=== PATIENT | female | born 1975 | race Two or more races ===

== ENCOUNTER 2025-08-14 19:30 | Emergency (ER) | payer MEDICAID, SELFPAY ==
[2025-08-14 19:30] VITALS: BMI 25.4
--- NOTE | 2025-08-14 19:57 | XR_ITS ---
Examination: PA chest single view Technique: Upright PA chest single view Shortness of breath chest pain today. Findings: Pneumonia left base retrocardiac Normal heart size No pulmonary edema. Intact osseous structures Impression: Significant pneumonia left base
--- NOTE | 2025-08-14 20:43 | EKG_ITS ---
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
--- NOTE | 2025-08-14 20:43 | EDNOTE_ITS ---
ED Chest Pain RME/HPI General Chief Complaint: Chest Pain Stated Complaint: CHEST PAIN, H/A, SOB Time Seen by Provider: 08/14/25 19:34 Arrival date/time: 08/14/25 19:30 RME / HPI RME / HPI narrative: DR. FAITH MAIN ED EVALUATION: Patient with ongoing upper substernal chest pain described as tightness associated with SOB x approximately 7 days duration. Pain worsened with exertion and while in supine position, Noted palpitations, but denies near-syncope or lightheadedness. No recent URI, cough, fever, or chils. Noted pleuritic component. Cardiac Risk-Factors: Hypercholesterolemia, Negative HTN, DM, Tobacco use, FHx of heart disease. PE Risk-Factors: No recent prolonged immobilization, travel/surgery/tobacco use. No personal or FHx of PE or DVT. PMH: Hypercholesterolemia. PSH: Non-contributory. Allergies: None. Social: Negative. Related Data Previous Rx's ?Medication ?Instructions ?Recorded acetaminophen 300 mg-codeine 15 mg 1 tab PO BID PRN pa in #14 tabs 11/20/23 tablet acetaminophen 650 mg 650 mg PO Q12H PRN fever or pain 11/20/23 tablet,extended release #30 tabs docusate sodium 100 mg capsule 100 mg PO BID #30 caps 11/20/23 (Colace) doxycycline monohydrate 100 mg 100 mg PO BID #30 caps 11/20/23 capsule ibuprofen 600 mg tablet 600 mg PO TID #30 tabs 11/20 metronidazole 500 mg tablet 500 mg PO BID #30 tabs 03/10 albuterol sulfate 90 mcg/actuation 2 puff inhalation Q 6H PRN 08/15/25 aerosol inhaler shortness of breath or wheez ing #8.5 grams amoxicillin 500 mg-potassium 1 tab PO TID 10 days #30 tabs 08/15/25 clavulanate 125 mg tablet (Augmentin) dextromethorphan-guaifenesin 5 10 ml PO Q4H PRN cough #500 mL 08/15/25 mg-100 mg/5 mL oral liquid (Child Robitussin Cough-Chest DM) doxycycline hyclate 100 mg capsule 100 mg PO BID #20 c aps 08/15/25 Allergies Allergy/AdvReac Type Severity Reaction Status Date / Time No Known Allergies Allergy Verified 11/19/23 09:42 Review of Systems Review of Systems Systems Reviewed: All systems reviewed, normal except as documented Past Medical History Past Medical History CARDIAC: Positive Hypercholesterolemia REPRODUCTIVE: Positive Previous Pregnancies (x5) ED Exam Narrative Physical exam: GEN. APPEARANCE: The patient is alert awake oriented X-3 in no distress, lying down comfortably, does not look ill/toxic. Patient has good eye contact. Patient is cooperative. Appears mildy tachypneic with slight conversational dyspnea. VITALS: All vitals were reviewed and the pulse ox is 100% on room air which is normal according to my interpretation. HEENT: Normocephalic, atraumatic. Pupils are equal and reactive. Oral mucosa is moist. Patent Nares NECK: Supple, nontender, no thyromegaly, no meningismus, no JVD, no step offs CHEST: Symmetrical, atraumatic, and with equal expansion , Nontender on palpation no deformity and no crepitus. CARDIOVASCULAR: Heart regular rhythm no murmur or gallop rub or extra beats. LUNGS: Diminished breath sounds BL bilaterally with symmetrical chest rise. No laboring tachypnea or wheezing. No intercostal subcostal retraction. No rales and no rhonchi. ABDOMEN: Soft, flat, nontender to palpation, no guarding or rebound tenderness. There are no abnormal masses palpated. Active and normal bowel sounds. EXTREMITIES: Nontender. No edema. No cyanosis. Patient is able to move all 4 extremities well, with full ROM and good CSM. No calf tenderness or swelling. SKIN: Warm and dry, no jaundice or rashes noted. MUSCULOSKELETAL: No lubar or midline bony tenderness. There is no CVA tenderness. No paraspinal muscle spasm or tenderness. NEURO: Patient is BRIZUELA x 4, Cranial nerves II through XII grossly intact. There is no focal neurologic deficits noted. GCS is 15, PNS and FITNESS MANAGEMENT DIRECTOR appear grossly intact. PSYCHIATRIC: Patient is in normal mood and affect, cooperative, no SI or HI or hallucinations. Course Quality Measures none Orders Category Date Time Status Bedside COVID-19 Antigen Test NOW Care 08/14/25 23:[address] Screening NOW Care 08/14/25 21:08 Active EKG (ED ONLY) *Do not use* NOW Care 08/14/25 20:[address] angio chest Stat Exams 08/14/25 21:08 Taken EKG (ED Only) Stat Exams 08/14/25 20:43 Draft XR chest 1V Stat Exams 08/14/25 19:57 Completed B-Type Natriuretic Peptide Stat Lab 08/14/25 21:01 Completed CBC Stat Lab 08/14/25 21:01 Completed Cocci Serology IgM with reflex to IgG [Cocci Serology, Lab 08/15/25 03:49 Received Unk History] Stat Comprehensive Metabolic Panel Stat Lab 08/14/25 21:01 Completed D-Dimer Stat Lab 08/14/25 21:01 Completed Drug Screen,Urine Stat Lab 08/14/25 21:28 Completed Magnesium Stat Lab 08/14/25 21:01 Completed Procalcitonin Stat Lab 08/15/25 03:49 Completed Troponin I Stat Lab 08/14/25 21:01 Completed Albuterol/Ipratr Rt Dionne [Duoneb Rt Dionne] Med 08/14/25 23:49 Discontinued 3 ml INH X1 ONE Azithromycin Inj [Zithromax Inj] 500 mg Med 08/15/25 01:53 Discontinued Sodium Chloride 0.9% 250 ml [Ns] 250 ml IV X1 Sodium Chloride 0.9% 500 ml [Ns] 500 ml Med 08/14/25 21:10 Discontinued IV 500 mls/hr cefTRIAXone/D5w 1gm IV premix [Rocephin/D5w 1gm IV Med 08/15/25 01:52 Discontinued premix] 1 gm in 50 ml IV X1 Vital Signs Vital signs: Vital Signs Temperature 98.9 F 08/14/25 20:44 Pulse Rate 82 08/14/25 20:44 Respiratory Rate 20 08/14/25 20:44 Blood Pressure 122/86 H 08/14/25 20:44 Pulse Oximetry (%) 96 08/14/25 20:44 Oxygen Delivery Method Room Air 08/14/25 20:44 Chest Pain MDM Narrative MDM Narrative:: Scribe Attestation: Kristy Fxo, james scribing for and in the presence of Dr. Faith. Provider Notation: Although this document has been carefully reviewed, there may still be some phonetic and other typographical errors. These errors are purely grammatical due to imperfections in the software program and should not be construed in any way to compromise the substance of the patient's medical care during this visit. Please see PE findings. Laboratory markers demonstrate a normal WBC, no anemia or thrombocytopenia. Serum chemistries essentially unremarkable. Troponin I undetected. UA equivocal for infection, but appears to be contaminated. CXR demonstrates left reto-cardiac basillar PNA. Patient placed on patient monitor, received nebulizer therapy and dual IV ABX. A CT was obtained to r/o pulmonary infarct/PE. which was unremarkabke for evidence of PE although appears to be possible developing abscess with LLL and mediastinal/hilar adenopathy likely inflammatory vs neoplastic. Patient remained hemodynamically stable without signs of underlying sepsis. Hospitalist consulted for possible admission, monitoring, and treatment. Final diagnosis includes LLL PNA and pyloric adenopathy. After hospitalist examination, patient deemed stable for discharge. Patient will be placed on dual ABX, MDI, and mucolytic with closely anticipated F/U with the [facility] as patient will likely require biopsy. Patient data External records reviewed:: [facility] previous records (No recent ED records available for review) Clinical information provided by:: patient Social determinants that could affect healthcare access:: none Patient has the following chronic illnesses:: Hypercholesterolemia How is presenting disease/condition affected by chronic disease/condition?: exacerbated by Evaluation data The following diagnostics were reviewed and interpreted by me:: lab results, radiology exam(s) and EKG tracing(s) (EKG demonstrates sinus rhythm with ventricular rate of 82 bpm, no acute ST segment changes, no ventricular ectopy, axis normal, per my interpretation.) Lab and/or radiology exams considered but not ordered:: None Interpretation Summary: RADIOLOGY Chest X-Ray: Findings: Pneumonia left base retrocardiac Normal heart size No pulmonary edema. Intact osseous structures Impression: Significant pneumonia left base Chest CTA: Findings: There is no filling defect within the pulmonary artery divisions to suggest pulmonary thromboembolism. Left hilar lymphadenopathy. Prominent mediastinal lymph nodes. The thoracic aorta is unremarkable. There is no pericardial effusion. Left lower lobe consolidation. Hypodense area in the left lower lobe measures 2.9 cm. No evidence of pleural effusion or pneumothorax. The osseous structures are unremarkable. Gallstones without evidence of acute cholecystitis. Impression: 1. No CT evidence of pulmonary thromboembolism. 2. Left lower lobe pneumonia. 3. Hypodense area in the left lower lobe, consider developing abscess and mass in the differential diagnosis. 4. Left hilar and mediastinal lymphadenopathy, reactive versus neoplastic. Please, correlate clinically. Medications / Prescriptions Medications or Prescriptions considered but not ordered:: None Medication administrations:: Medication Administration History Discontinued Medications Albuterol/Ipratropium (Albuterol/Ipratropium (Duoneb) Rt Dionne 3 Ml Nebu) 3 ml INH X1 ONE Stop: 08/14/25 23:50 Last Admin: 08/15/25 00:04 Dose: 3 ml Documented By: CLAY Sodium Chloride (Ns) 500 mls @ 500 mls/hr IV .Q1H ONE Stop: 08/14/25 22:09 Last Infusion: 08/15/25 01:53 Dose: Infused Documented By: Admin: 08/14/25 23:49 Dose: 500 mls/hr Documented By: LEON Ceftriaxone Sodium/Dextrose (Rocephin/D5w 1gm Iv Premix) 1 gm in 50 mls @ 100 mls/hr IV X1 ONE Stop: 08/15/25 02:21 Last Admin: 08/15/25 04:19 Dose: 100 mls/hr Documented By: LEON Azithromycin 500 mg/ Sodium (Chloride) 250 mls @ 250 mls/hr IV X1 ONE Stop: 08/15/25 02:52 Last Admin: 08/15/25 04:22 Dose: 250 mls/hr Documented By: LEON See above if any Consultations Consultation(s) initiated? (list below): Yes Consultation #1 (Physician, Specialty, Details): Discussed with Dr. Cage for admission. Reviewed the patient?s HPI, PMHx, lab and/or radiology results. Discussed treatment plan. Time: 01:53 Diagnosis Chest Pain Differential Diagnosis: pneumothorax, stable angina, unstable angina pectoris, atypical chest pain, st elevation myocardial infarction, costochondritis, chest pain and other (PNA) Most likely diagnosis given after review of the tests above:: LLL PNA, Pyloric adenopathy Admission Indicated Admission indicated?: indicated Explain why admission is indicated or not indicated:: LLL PNA, Pyloric adenopathy Admission Request Was there a request for admission?: Yes Admission Attestation Admission request attestation: Discussed case with [] from Hospitalist service regarding admission. Discussed patients ED course, exam findings, labs, and radiology results. The Hospitalist [agrees,declines] to accept the patient for admission. Disposition Plan Disposition Plan: Discharge Discharge Attestation Discharge Attestation: The patient and all family members were given an opportunity to ask questions and understood the discharge instructions. Discharge instructions specifically effects, indications for sooner follow up or return to the emergency department, and the expected course of current diagnosis. Patient condition: Stable Critical Care Time Critical Care Time Critical Care Time: Yes Total Critical Care Time (min.): 40 Attestation: The high probability of sudden, clinically significant deterioration in the patient?s condition required the highest level of my preparedness to intervene urgently. The services I provided to this patient were to treat and/or prevent clinically significant deterioration. Services included the following: chart data review, reviewing nursing notes and/or old charts, documentation time, cardiology consultants collaboration regarding findings and treatment options, medication orders and management, direct patient care, vital sign assessments and ordering, interpreting and reviewing diagnostic studies and lab tests. Aggregate critical care time includes only time during which I was engaged in work directly related to the patient?s care, as described above, whether at bedside or elsewhere in the Emergency Department. It did not include time spent performing other reported procedures or the services of residents, students, nurses or physician assistants. Discharge Plan Plan Patient Disposition: HOME (Self Care) Prescriptions/Referrals Prescriptions/Med Rec: New amoxicillin-pot clavulanate [Augmentin] 500-125 mg tablet 1 tab PO TID 10 Days Qty: 30 0RF doxycycline hyclate 100 mg capsule 100 mg PO BID Qty: 20 0RF dextromethorphan-guaifenesin [Chld Robitussin Cough-Chest DM] 5-100 mg/5 mL liquid 10 ml PO Q4H PRN (Reason: cough) Qty: 500 0RF albuterol sulfate 90 mcg/actuation HFA aerosol inhaler 2 puff inhalation Q6H PRN (Reason: shortness of breath or wheezing) Qty: 8.5 0RF No Action acetaminophen-codeine 300-15 mg tablet 1 tab PO BID PRN (Reason: pain) Qty: 14 0RF acetaminophen 650 mg tablet extended release 650 mg PO Q12H PRN (Reason: fever or pain) Qty: 30 0RF ibuprofen 600 mg tablet 600 mg PO TID Qty: 30 0RF metronidazole 500 mg tablet 500 mg PO BID Qty: 30 0RF doxycycline monohydrate 100 mg capsule 100 mg PO BID Qty: 30 0RF docusate sodium [Colace] 100 mg capsule 100 mg PO BID Qty: 30 0RF Referrals: [facility] [Outside] - In 1 week Referral Note: Patient with left lower lobe pneumonia/? Abscess may require biopsy as this may represent mass. No Primary/Family,Physician [Primary Care Provider] - In 1 week Problem List Clinical Impression: Left lower lobe pneumonia, Adenopathy Patient/Caregiver Discharge Instructions Discharge Activity: activity as tolerated Diet Instructions: Force fluids Education Materials: ED Pneumonia (Adult) Additional Instructions: Force fluids/maintain adequate rest/medication as directed/follow-up with the [facility] for further evaluation monitoring treatment. Return if worsening Print Language: Korean Stand Alone Forms: Corin Award Info., Patient Portal Info Letter
[2025-08-14 20:44] VITALS: BP 122/86; PULSE 82; RESP 20; TEMP 37.2; O2SAT 96
--- NOTE | 2025-08-14 21:08 | XR_ITS ---
Examination: CTA chest with intravenous contrast 2-D reconstructions 3-D reconstructions, vascular Date and time of exam: 05/26/2029, 2024, 0044 hrs. Indications: Shortness of breath chest pain today CTDI: vol (mGy) 9.74 DLP: (mGycm) 314 Technique: Multiple axial sections of the thorax have been obtained. 3 mm slice thickness, from below the hemidiaphragms to above the apices of the lungs. Mediastinal and lung density settings have been obtained. 2-D sagittal and coronal reconstructions. 3-D angiographic renderings, 3-D volume renderings, 3D post processing, vascular maximum intensity projections obtained. Contrast administered is 100 cc Isovue-370. Intravenous Low dose protocols were performed. One or more of the following dose reduction techniques were used; automated exposure control, adjustment of the mA and/or KV according to patient size, use of iterative reconstruction technique. Findings: No thoracic aortic aneurysm dilatation or dissection. No pulmonary artery filling defects Moderate vascular congestion Dense pneumonic consolidation in the left base versus pulmonary mass with necrotic center, the mass measuring 4.2 cm No visualized liver or splenic lesion Gallstones No hydronephrosis Abdominal aorta is not enlarged Moderate osteopenia Impression: Negative for pulmonary artery emboli Dense pneumonic consolidation versus mass in the left lower lobe 4.2 cm, recommend follow-up chest imaging post antibiotic therapy
[2025-08-14 21:17] LABS: Basophils # (Auto) 0.0 Thou/mm3 (0.0-0.2); Basophils % (Auto) 0 % (0-2.5); Eosinophils # (Auto) 0.1 Thou/mm3 (0.0-0.5); Eosinophils % (Auto) 1 % (0-10); Hematocrit 37.1 % (36.0-46.0); Hemoglobin 12.8 g/dL (12.0-16.0); Immature Granulocytes Auto 0.03 Thou/mm3 (0.00-0.00); Lymphocytes # (Auto) 2.3 Thou/mm3 (1.0-4.8); Lymphocytes % (Auto) 25 % (10-50); Mean Corpuscular HGB Conc 34.5 g/dl (31.0-37.0); Mean Corpuscular Hemoglobin 30.6 pg (25.0-35.0); Mean Corpuscular Volume 89 fL (80-100); Monocytes # (Auto) 0.8 Thou/mm3 (0.0-0.8); Monocytes % (Auto) 8 % (0-12); Neutrophils # (Auto) 5.8 Thou/mm3 (1.8-7.7); Neutrophils % (Auto) 64 % (37-80); Nucleated Red Blood Cell # 0.00 Thou/mm3 (0.00-0.00); Nucleated Red Blood Cell % 0 /100 WBC (0); Platelet Count 309 Thou/mm3 (140-440); RDW Standard Deviation 39.2 fL (36.4-46.3); Red Blood Count 4.18 Miln/mm3 (4.00-5.20); White Blood Count 9.1 Thou/mm3 (3.6-11.0)
[2025-08-14 21:37] LABS: B-Type Natriuretic Peptide < 20 pg/mL (0-100)
[2025-08-14 21:40] LABS: Alanine Aminotransferase 11 U/L (10-49); Albumin, Serum 4.1 gm/dL (3.5-5.0); Albumin/Globulin Ratio 1.2 (1.2-2.2); Alkaline Phosphatase 75 U/L (46-116); Anion Gap 8 (7-16); Aspartate Amino Transferase 16 U/L (0-34); BUN/Creatinine Ratio 13 Ratio (12-20); Bilirubin,Total 0.7 mg/dL (0.3-1.2); Blood Urea Nitrogen 10 mg/dL (9-23); Calcium 9.7 mg/dL (8.3-10.6); Calcium (Corrected) 9.7 mg/dL (8.5-10.1); Carbon Dioxide 25.7 mMol/L (20.0-31.0); Chloride 104 mMol/L (98-107); Creatinine (Component) 0.8 mg/dL (0.6-1.3); Estimated Creatinine Clearance 77.3 mL/min (>60); Globulin 3.5 gm/dL (2.3-3.5); Glucose 100 mg/dL (74-106); Magnesium 2.1 mg/dL (1.6-2.6); Osmolality,Calculated 274 (275-295); Potassium 3.9 mMol/L (3.4-5.1); Sodium 138 mMol/L (136-145); Total Protein 7.6 gm/dL (5.7-8.2); Troponin I < 0.002 ng/mL (0.0-0.045); eGFR > 60 See Note
[2025-08-14 21:55] LABS: Amphetamine/Methamp Scrn,U Negative (Negative); Barbiturate Screen,Urine Negative (Negative); Benzodiazepines Screen,Urine Negative (Negative); Benzoylecgonine Screen, Ur Negative (Negative); Fentanyl Screen,Urine Negative (Negative); Opiate Screen,Urine Negative (Negative); THC Screen,Urine Negative (Negative)
[2025-08-14 22:23] LABS: D-Dimer 1170 ng/mL (<600)
[2025-08-14] MEDS: SODIUM CHLORIDE 0.9% 500 ML 500 ML IV (23:49)
[2025-08-14 23:50] VITALS: BP 125/81; PULSE 80; RESP 20; O2SAT 98
[2025-08-15 00:04] VITALS: PULSE 70; RESP 29; O2SAT 100
[2025-08-15] MEDS: ALBUTEROL/IPRATROPIUM (Duoneb) RT SOL 3 ML NEBU INH (00:04)
--- NOTE | 2025-08-15 01:54 | PRELIM_ITS ---
CT angiogram of the chest with intravenous contrast (axial sections with sagittal and coronal reformats) August 15, 2025 0044 hours Clinical History: Rule out pulmonary thromboembolism/pulmonary infarct Technique:Helical axial sections with sagittal and coronal reformats of the chest were obtained with intravenous contrast. Iterative reconstruction technique was employed to reduce patient radiation exposure. MIP reconstructed images were also provided. Comparison: None available at the time of this report. Findings: There is no filling defect within the pulmonary artery divisions to suggest pulmonary thromboembolism. Left hilar lymphadenopathy. Prominent mediastinal lymph nodes. The thoracic aorta is unremarkable. There is no pericardial effusion. Left lower lobe consolidation. Hypodense area in the left lower lobe measures 2.9 cm. No evidence of pleural effusion or pneumothorax. The osseous structures are unremarkable. Gallstones without evidence of acute cholecystitis. Impression: 1. No CT evidence of pulmonary thromboembolism. 2. Left lower lobe pneumonia. 3. Hypodense area in the left lower lobe, consider developing abscess and mass in the differential diagnosis. 4. Left hilar and mediastinal lymphadenopathy, reactive versus neoplastic. Please, correlate clinically. Discussion Details: Results verbally communicated to : Dr Campos at 01:44 AM 08/15/2025 Report Electronically Signed By: Javon Dobbins 08/15/2025 1:53:35 AM [EST]
[2025-08-15 04:19] VITALS: BP 121/87; PULSE 70; RESP 18; O2SAT 96
[2025-08-15] MEDS: cefTRIAXone/D5w 1gm IV premix 1 GM/50 ML BAG IV (04:19)
[2025-08-15] MEDS: AZITHROMYCIN INJ 500 MG in SODIUM CHLORIDE 0.9% 250 ML 250 ML 250 MG IV (04:22)
[2025-08-15 04:29] LABS: Procalcitonin 0.06 ng/ml (0.0-0.49)
[2025-08-15 04:40] VITALS: BP 124/82; PULSE 74; RESP 14; TEMP 36.3; O2SAT 98
[2025-08-15 05:53] VITALS: BP 110/73; PULSE 81; RESP 18; O2SAT 99
[2025-08-15 15:04] LABS: Cocci Serology, IgM Positive (Negative)
[2025-08-15 15:05] LABS: Cocid Sro, CF/ID (UCD) NO CHG* See Sep Rpt
== END 2025-08-15 05:53 | disposition home or self-care (01) ==
PROVIDERS: Student in an Organized Health Care Education/Training Program; Emergency Provider Emergency Medicine
DX: J18.9 Pneumonia, unspecified organism (principal); R59.0 Localized enlarged lymph nodes; E78.00 Pure hypercholesterolemia, unspecified
CPT/HCPCS: 36415; 71045; 71275; 80053; 80307; 83735; 83880; 84145; 84484; 85025; 85379; 86635; 87811; 93005; 94640; 96361; 96365; 99284; A4649; A9270; J0456; J0696; J7050; J7999; Q9967